=== PATIENT | male | born 1965 | race Caucasian/White ===

== ENCOUNTER 2017-05-03 17:24 | Emergency (ER) | payer MEDICAID ==
[~2017-05-03] VITALS: Ht 182.9 cm; Wt 89.0 kg
[~2017-05-03 17:24] MED LIST: CLIN150C2 PO; HYDR1TAB PO; NO HOME MEDS; [UNRECOGNIZED DRUG - CODE] PO; [UNRECOGNIZED DRUG - CODE] PO
[2017-05-03] MEDS ORDERED: CIPR-230 PO (22:16)
[2017-05-03 22:20] VITALS: BP 129/72
== END 2017-05-03 22:22 | disposition home or self-care (01) ==
LOC: ER 17:25
DX: N45.1 Epididymitis (principal); I10 Essential (primary) hypertension; G89.29 Other chronic pain; Z88.2 Allergy status to sulfonamides; F15.10 Other stimulant abuse, uncomplicated
CPT/HCPCS: 99283

== ENCOUNTER 2019-04-08 04:29 | Emergency (ER) | payer MEDICAID, OTHER ==
[2019-04-08] VITALS (11 sets, daily range): BP systolic 115–132; BP diastolic 42–79
[~2019-04-08] VITALS: Ht 182.9 cm; Wt 90.9 kg
[2019-04-08] MEDS ORDERED: TETanus/Pertussis (Acell)/Diphther VAC/PF (Tdap-Adult) 0.5ml syringe IMVAC ONE (04:50)
[2019-04-08] MEDS ORDERED: amox tr/potassium clavulanate 875/125mg TAB PO ONE (05:45)
[2019-04-08 05:53] LABS: BASOPHILS % (AUTO) 0.4 % (0-1); EOSINOPHILS # (AUTO) 0.1 X10'3 (0-0.9); EOSINOPHILS % (AUTO) 0.5 % (0-6); HEMATOCRIT 41.6 % (42.0-52.0); HEMOGLOBIN 14.6 g/dl (14.0-17.9); LYMPHOCYTES # (AUTO) 1.4 X10'3 (1.1-4.8); LYMPHOCYTES % (AUTO) 13.1 % (21-51); MEAN CORPUSCULAR HEMOGLOBIN 33.7 PG (27.0-31.0); MEAN CORPUSCULAR HGB CONC 35.2 g/dL (33.0-36.5); MEAN CORPUSCULAR VOLUME 95.7 FL (78-98); MEAN PLATELET VOLUME 8.9 FL (7.4-10.4); MONOCYTES # (AUTO) 0.9 X10'3 (0-0.9); MONOCYTES % (AUTO) 8.7 % (2-12); NEUTROPHILS % (AUTO) 77.3 % (42-75); PLATELET COUNT 263 X10'3 (140-440); RED BLOOD COUNT 4.35 X10'6 (4.70-6.10); RED CELL DISTRIBUTION WIDTH 12.3 % (11.5-14.5); WHITE BLOOD COUNT 10.3 X10'3 (4.5-11.0)
[2019-04-08 06:05] LABS: ALANINE AMINOTRANSFERASE 40 U/L (12-78); ALBUMIN 3.7 G/DL (3.4-5.0); ALKALINE PHOSPHATASE 57 IU/L (46-116); ANION GAP 7 (8-16); ASPARTATE AMINO TRANSFERASE 28 U/L (10-37); BILIRUBIN,TOTAL 0.5 MG/DL (0.1-1.0); BLOOD UREA NITROGEN 14 MG/DL (7-18); CALCIUM 9.1 MG/DL (8.5-10.1); CHLORIDE 105 MMOL/L (99-107); CREATININE 1.08 MG/DL (0.60-1.10); GLUCOSE 93 MG/DL (70-104); SODIUM 140 MMOL/L (135-145); TOTAL CARBON DIOXIDE 27.7 MMOL/L (24-32); TOTAL PROTEIN 7.3 G/DL (6.4-8.2); eGFR 72 ML/MIN
[2019-04-08 06:10] LABS: POTASSIUM 4.5 MMOL/L (3.5-5.1)
[2019-04-08] MEDS ORDERED: NO HOME MEDS (06:18)
[2019-04-08] MEDS ORDERED: morphine 4 MG/ML inj SYRINge IV ONE (06:45)
--- NOTE | 2019-04-08 07:23 | NUR ---
REPORT GIVEN TO INSTRUMENT INSTALLER JOHN.
[2019-04-08] MEDS ORDERED: sevoflurane 250ml liquid IH ONE (07:42)
[2019-04-08] MEDS ORDERED: fentaNYL/PF 50MCG/1 ML 2ML syringe ONE ×2 (07:46→07:56)
[2019-04-08] MEDS ORDERED: midazolam 2 mg/2 ml injection ONE (07:47)
[2019-04-08] MEDS ORDERED: propofol inj 20 ML IV ONE (07:47)
[2019-04-08] MEDS ORDERED: ceFAZolin 1000mg inj ONE ×2 (07:50→07:51)
[2019-04-08] MEDS ORDERED: bacitracin 15gm ointment TP ONE (07:51)
[2019-04-08] MEDS ORDERED: ceFAZolin 1GM/D5W- ADD-VANTAGE 50 ML IV SCH (08:00)
[2019-04-08] MEDS ORDERED: ringers solution, lacted 1,000 ML IV SCH (08:13)
[2019-04-08] MEDS ORDERED: proCHLORperazine 10 MG/2 ml inj IV PRN (08:15)
[2019-04-08] MEDS ORDERED: ondansetron/PF 4mg/2ml inj IV PRN (08:15)
[2019-04-08] MEDS ORDERED: meperidine/PF 25mg/ml syringe IV PRN ×3 (08:15)
[2019-04-08] MEDS ORDERED: morphine 4 MG/ML inj SYRINge IV PRN ×2 (08:15)
[2019-04-08] MEDS ORDERED: BUPIVAcaine/PF 2.5 mg/ml (0.25%) 30ml vial ONE (08:28)
--- NOTE | 2019-04-08 08:53 | NUR ---
Received from OR via [facility], accompanied by Anesthesiologist DR PHILIP and report given by Anesthesiologist. PT DROWSY, DENIES PAIN, PT W/MESH UNDERWARE W/GAUZE HARVEY COVERING INCISION, CDI. Addendum: 04/08/19 at 0920 by Zenobia Miles RN Amended: Links added.
[2019-04-08] MEDS ORDERED: HYDROcodone/acetaminophen 5mg/325mg tablet PO ONE (09:30)
--- NOTE | 2019-04-08 11:03 | NUR ---
PT D/CD TO [facility] W/CORRECTIONAL OFFICERS, TOLERATED BREAKFAST AND ORAL FLUIDS, PT DEMONSTRATES COMFORT, D/CD VIA W/C TO CORRECTIONAL VAN W/O INCIDENT. Addendum: 04/08/19 at 1121 by Zenobia Miles RN Amended: Links added.
== END 2019-04-08 11:03 ==
LOC: ER 04:29 → EEVIPCON 04:29 → ER 11:03
DX: S31.31XA Laceration without foreign body of scrotum and testes, initial encounter (principal); I10 Essential (primary) hypertension; G89.29 Other chronic pain; F32.9 Major depressive disorder, single episode, unspecified; F15.90 Other stimulant use, unspecified, uncomplicated; Z60.2 Problems related to living alone; Z56.0 Unemployment, unspecified; Z88.2 Allergy status to sulfonamides; Z98.890 Other specified postprocedural states; W01.190A Fall on same level from slipping, tripping and stumbling with subsequent striking against furniture, initial encounter; Y93.39 Activity, other involving climbing, rappelling and jumping off; Y92.89 Other specified places as the place of occurrence of the external cause; Y99.8 Other external cause status
CPT/HCPCS: 12042; 36415; 80053; 85025; 85610; 90471; 90715; 96374; 99285; J0690; J2175; J2250; J2270; J2704; J3010; J3490; J7120; A4215; A4618; A6449; A7000